=== PATIENT | male | born 1965 | race Caucasian/White ===

== ENCOUNTER 2022-09-04 08:11 | Observation (INO) ==
--- NOTE | 2022-08-28 10:55 | Anesthesiology Consultation ---
Date of Service August 28, 2022 Assessment & Plan (1) Encounter for pre-operative examination: Chart Review Chart Review: Acceptable Risk for Surgery and Patient NOT seen in Pre Admission Testing -COVID screening: Per PAT nursing assessment on 08/28/22. No known COVID-19 positive contacts or current COVID-19 related symptoms. Travel screen negative. Patient is NOT vaccinated for Covid. At surgeon discretion if preop Covid testing being done. Pt seen by PCP 08/24/22= seen for preop clearance for low back surgery. Lab results are normal, CXR normal, EKG shows NSR, no ST-T or any other acute ch anges. "Pt cleared for surgery." History Surgery Operation Date: 09/04/22 10:05 Proposed Procedures p L2-L3 Decompression with Possible Coflex - Luis Manuel Mijares DO Height/Weight Height: 5 ft 11 in Weight: 97.522 kg Allergies Allergy/AdvReac Type Severity Reaction Status Date / Time No Known Allergies Allergy Verified 08/28/22 10:21 Medications Home Medications Medication Instructions Recorded Confirmed Last Taken lidocaine 5 % topical patch 1 patch topical DAILY PRN pain #15 08/03/22 08/28/22 Unknown ea methylprednisolone 4 mg tablets in See Rx Instructions .Route 08/03/22 08/28/22 Unknown a dose pack .COMPLEX #21 ea acetaminophen 500 mg tablet 500 mg PO Q6H PRN Pain 08/28/22 08/28/22 Unknown naproxen sodium 220 mg tablet 440 mg PO BID PRN Pain 08/28/22 08/28/22 Unknown (Aleve) Past Medical History Medical History (Updated 08/29/22 @ 09:05 by Abbi Payne PA-C) Chronic back pain Degenerative disc disease Hyperlipidemia Per PCP records Osteoarthritis Past Family History Family History Father Colon cancer Past Surgical History Surgical History History of appendectomy History of herniorrhaphy x2 [place] teeth extracted Social History Smoking Status: Never smoker Do You Dip or Chew Tobacco: No (quit in 1991) Hx Alcohol Use: No Hx Substance Use: No substance use type: does not use Lab Results Anesthesia Preop Results Results Anesthesia Widget: WBC 5.04 K/ul (4.8-10.8) 08/23/22 Hgb 15.7 g/dl (14.0-18.0) 08/23/22 Hct 44.7 % (42.0-52.0) 08/23/22 Plt 150 K/uL (130-400) 08/23/22 Na 138 mmol/L (136-145) 08/23/22 K 3.8 mmol/L (3.5-5.1) 08/23/22 Cl 104 mmol/L (98-107) 08/23/22 CO2 28 mmol/L (21-32) 08/23/22 BUN 29 mg/dl (6-23) H 08/23/22 Creat 0.89 mg/dl (0.6-1.4) 08/23/22 Glucose Level 90 mg/dl (70-99(Fasting)) 08/23/22 PT 11.3 Seconds (9.0-12.0) 08/23/22 PTT 27.8 Seconds (21.0-31.0) 08/23/22 INR 1.1 (0.9-1.1) 08/23/22 Urine Color Dark Yellow 08/23/22 Urine Appearance Clear (Clear) 08/23/22 Urine pH 5.5 (4.5-7.5) 08/23/22 Urine Specific [place] 1.039 (1.000-1.030) H 08/23/22 Urine Protein 1+ (Negative) H 08/23/22 Urine Glucose (UA) Negative (Negative) 08/23/22 Urine Ketones Trace (Negative) H 08/23/22 Urine Blood Negative (Negative) 08/23/22 Urine Nitrite Positive (Negative) A 08/23/22 Urine Bilirubin 1+ (Negative) H 08/23/22 Urine Urobilinogen Negative (Negative) 08/23/22 Urine Leukocyte Esterase Trace (Negative) H 08/23/22 Urine WBC (Auto) 1-5 /hpf (0-5) 08/23/22 Urine RBC (Auto) 0-4 /hpf (0-4) 08/23/22 Urine Hyaline Casts (Auto) 5-10 /lpf (0-5) H 08/23/22 Urine Epithelial Cells (Auto) 10-20 /lpf (0-5) H 08/23/22 Urine Bacteria (Auto) Negative (Negative) 08/23/22 Blood Type O Positive 08/23/22 Antibody Screen NEGATIVE 08/23/22 Testing Laboratory Results 08/23/22= URINE CULTURE: Three types of organisms present, all low counts probable skin cassy Electrocardiogram Date: 08/23/22 Findings: + NSR @ (62bpm ) RBBB. LAFB Bifascicular block Minimal voltage criteria for LVH, may be normal variant (Previous EKG from PCP office 01/28/21 showed RBBB/LAFB- Bifascicular block- pt's states patient has had no recent chest pain/SOB/cardiac symptoms- discussed with Dr. Diaz- patient can proceed as scheduled) Chest X-Ray Date: 08/23/22 Findings: + NAD
[~2022-09-04 08:11] MED LIST: ACETAMINOPHEN 500 MG TAB PO SCH; CeleBREX 200 MG CAP PO SCH; GABAPENTIN 600 MG DOSE PO SCH; LR 15ML/HR IV SCH; ceFAZolin 2000MG 2,000 MG/15 ML SYR IV SCH
[2022-09-04] MEDS ORDERED: HYDROmorphone INJ 1 MG/ML SYRINGE IV PRN ×2 (09:25→12:15)
[2022-09-04] MEDS ORDERED: ONDANSETRON INJ 2 MG/ML 2 ML VIAL IV PRN ×2 (09:25→12:15)
[2022-09-04] MEDS ORDERED: ePHEDrine sulfate 50 MG/ML AMP IV PRN (09:25)
[2022-09-04] MEDS ORDERED: ATROPINE SULFATE 0.1 MG/ML 10ML SYR IV PRN (09:25)
[2022-09-04] MEDS ORDERED: fentaNYL citrate PF 100 MCG/2 ML VIAL IV PRN (09:25)
--- NOTE | 2022-09-04 09:43 | History & Physical Bridge Note ---
Date of Service September 04, 2022 History & Physical Bridge Note I have examined the patient, reviewed the History & Physical and in the interval since the performance of the History & Physical I have noted the following changes of clinical significance: no changes noted
--- NOTE | 2022-09-04 09:44 | History & Physical Report ---
Date of Service September 04, 2022 Assessment & Plan (1) Lumbar disc herniation with radiculopathy: Plan: L2-L3 decompression with possible Coflex History of Present Illness Chief Complaint: Back and leg pain Primary Care Provider: Dilia Landry This is a 57-year-old male presents with chronic persistent back and leg pain after failing course of nonoperative care is here for surgical invention. Allergies Allergy/AdvReac Type Severity Reaction Status Date / Time No Known Allergies Allergy Verified 09/04/22 09:06 Home Medications Medication Instructions Recorded Confirmed Type lidocaine 5 % topical patch 1 patch topical DAILY PRN pain #15 08/03/22 09/04/22 Rx ea acetaminophen 500 mg tablet 500 mg PO Q6H PRN Pain 08/28/22 09/04/22 History naproxen sodium 220 mg tablet 440 mg PO BID PRN Pain 08/28/22 09/04/22 History (Aleve) Past Med/Surg History Medical History (Updated 09/04/22 @ 09:44 by Luis Manuel Mijares DO) Chronic back pain Degenerative disc disease Hyperlipidemia Per PCP records Osteoarthritis Surgical History History of appendectomy History of herniorrhaphy x2 [place] teeth extracted Family History Father Colon cancer Social History Smoking Status: Never smoker Second Hand Exposure: No; Do You Dip or Chew Tobacco: No (quit in 1991); Tobacco Cessation Education Requested by Patient: No Hx Alcohol Use: No Hx Substance Use: No Preferred Language: Telugu Communication Ability: Effective Higher Level Teaching Assistant Required: No Beliefs That Will Affect Care: None Current Living Situation: Spouse Other Information That Helps Us Care for You: No Feels Safe at Home: Yes Safety Concerns: Feels Safe At This Time Assistive Devices: Glasses Physical Exam Physical Exam: Patient is alert and oriented Heart regular rhythm Lungs clear Results & Data Results & Data Vital Signs (Past 12 Hours) Vital Signs Temp Pulse Resp BP Pulse Ox O2 Del Method 09/04/22 09:09 36.4 C L 63 20 132/89 99 Room Air
[2022-09-04] MEDS ORDERED: BUPIVACAINE/EPINEPHRINE 0.25% 1:200,000 30 ML VIAL ONE (09:46)
[2022-09-04] MEDS ORDERED: ceFAZolin 330 MG/ML 1 GM VIAL ONE (09:46)
[2022-09-04] MEDS ORDERED: ONDANSETRON INJ 2 MG/ML 2 ML VIAL ONE (09:51)
[2022-09-04] MEDS ORDERED: GLYCOPYRROLATE 0.2 MG/ML VIAL ONE (09:51)
[2022-09-04] MEDS ORDERED: LIDOCAINE 2% MPF LOCAL 5 ML VIAL ONE (09:51)
[2022-09-04] MEDS ORDERED: NEOSTIGMINE METHYLSULFATE 1 MG/ML 10ML VIAL ONE (09:51)
[2022-09-04] MEDS ORDERED: ROCURONIUM BROMIDE 10 MG/ML 5 ML VIAL IV ONE (09:51)
[2022-09-04] MEDS ORDERED: PROPOFOL IV EMULSION 10 MG/ML 20 ML VIAL IV ONE (09:51)
[2022-09-04] MEDS ORDERED: DEXAMETHASONE SOD INJ 4 MG/ML VIAL ONE (09:51)
[2022-09-04] MEDS ORDERED: HYDROmorphone INJ 2 MG/ML SYR/VIAL ONE (09:52)
[2022-09-04] MEDS ORDERED: MIDAZOLAM HCL 1 MG/ML 2ML VIAL ONE (09:52)
[2022-09-04] MEDS ORDERED: ePHEDrine sulfate 50 MG/ML AMP ONE (10:46)
[2022-09-04] MEDS ORDERED: FLOSEAL HEMOSTATIC MATRIX 10ML TOP ONE (11:10)
--- NOTE | 2022-09-04 11:14 | Operative Report ---
Post Operative Report Pre & Post Diagnosis Operation Date: 09/04/22 10:05 Pre-Op Diagnosis: Lumbar Disc Herniation with Radiculopathy Post-Op Diagnosis: Lumbar Disc Herniation with Radiculopathy I identified the patient and participated in the time-out.: Yes Procedure Operation Date: 09/04/22 10:05 Actual Procedures #1 lumbar decompression with medial facetectomies foraminotomies and excision of herniated free fragment L2-L3. #2 placement of 16 mm Coflex interlaminar fixation. Surgeon Luis Manuel Mijares DO Vibration Analyst Archana Delatorre Estimated Blood Loss 30 Findings Consistent with Post-Op Diagnosis Specimens None Indications This is a 57-year-old male presents with severe radiculopathy and herniated disc. After failed course of nonoperative care is here for surgical invention. Description of Procedure Patient was met with identified informed consent obtained. Patient was then taken to the operative suite underwent patient placed in a prone position on the [place] table top Ton frame. All bony prominences well-padded eyes inspected to ensure no external pressure placed upon them. This point the lumbar spine was prepped and draped in a sterile fashion. The assistance of fluoroscopy defy the L2-L3 disc base and a midline incision was created overlying this region. Sharp dissection with assistance of Bovie cautery form down to and exposing the interlaminar space at L2-L3. Midline decompression including medial facetectomies and foraminotomies performed. I also identified neck removed massive free fragment disc herniation on the right. After complete decompression I explored the area several times to ensure all these fragments addressed. Then placed a 16 mm Coflex into the interlaminar space. A prescription into position. The incision was then copiously irrigated 10 round JASON drain inserted. Then closed with subcutaneous Vicryl and 4 Monocryl for f inal skin closure. Steri-Strips sterile dressing placed. Patient waken and taken to PACU in stable condition. Please note Archana Delatorre was present at the entire surgery involved the patient positioning complex portion of the surgery and final skin closure. I attest to the content of the Intraoperative Record and any orders documented therein. Any exceptions are noted below.
--- NOTE | 2022-09-04 11:58 | Fluoroscopy Report ---
FL spine 1V any level CLINICAL HISTORY: L2-3 DECOM W/COFLEX COMPARISON STUDY: Lumbar spine MRI August 01, 2022. FLUOROSCOPY TIME: 8 seconds. FLUOROSCOPIC IMAGES: 2 FINDINGS: Fluoroscopy was provided during L2-L3 posterior decompression with placement of a Coflex de vice. IMPRESSION: Fluoroscopy provided during L2-L3 decompression with placement of a Coflex device. ACT 112: Negative or not required by law. Electronically signed by: Paxton Bui M.D. 09/04/2022 11:56 AM
[2022-09-04] MEDS ORDERED: HYDROmorphone INJ 0.5 MG/0.5 ML SYR IV PRN (12:15)
[2022-09-04] MEDS ORDERED: LORazepam 2 MG/1 ML VIAL IV PRN (12:15)
[2022-09-04] MEDS ORDERED: DO NOT ADMINISTER FLU VACCINE PRN (12:15)
[2022-09-04] MEDS ORDERED: ACETAMINOPHEN 1,000 MG/100 ML VIAL IV PRN (12:15)
[2022-09-04] MEDS ORDERED: METOCLOPRAMIDE HCL INJ 5 MG/ML 2 ML VIAL IV PRN (12:15)
[2022-09-04] MEDS ORDERED: diphenhydrAMINE Capsule 25 MG CAP PO PRN (12:15)
[2022-09-04] MEDS ORDERED: bisacodyL 10 MG SUPP PR PRN (12:15)
[2022-09-04] MEDS ORDERED: NALOXONE HCL 0.4 MG/1 ML VIAL/CARP IV PRN (12:15)
[2022-09-04] MEDS ORDERED: FAMOTIDINE 20 MG TAB PO PRN (12:15)
[2022-09-04] MEDS ORDERED: SOD PHOSPHATE/SOD BIPHOSPHATE ENEMA 132 ML BTL PR PRN (12:15)
[2022-09-04] MEDS ORDERED: ALUMINUM/MAGNESIUM SUSP 30 ML UDC PO PRN (12:15)
[2022-09-04] MEDS ORDERED: DO NOT ADMINISTER PNEUMOCOCCAL VACCINE PRN (12:15)
[2022-09-04] MEDS ORDERED: hydrOXYzine HCl 25 MG TAB PO PRN (12:15)
[2022-09-04] MEDS ORDERED: ONDANSETRON 4 MG OD TAB PO PRN (12:15)
[2022-09-04] MEDS ORDERED: ACETAMINOPHEN 500 MG TAB PO PRN (12:15)
[2022-09-04] MEDS ORDERED: traMADol HCL 50 MG TABLET PO PRN (12:15)
[2022-09-04] MEDS ORDERED: MAGNESIUM HYDROXIDE SUSP 30 ML UDC PO PRN (12:15)
[2022-09-04] MEDS ORDERED: LORazepam 0.5 MG TAB PO PRN (12:15)
[2022-09-04] MEDS ORDERED: PROMETHAZINE HCL 12.5 MG in SODIUM CHLORIDE 0.9% 50 ML IV PRN (12:15)
--- NOTE | 2022-09-04 13:12 | Anesthesiology Progress Note ---
Date of Service September 04, 2022 Anesthesia Post Procedure Vital Signs Vital Signs: Temp Pulse Pulse Resp BP Pulse Ox O2 Del Method 09/04/22 13:07 Nasal Cannula 09/04/22 12:47 97.5 F L 67 16 109/71 95 Nasal Cannula 09/04/22 12:12 97.5 F L 56 L 16 123/80 95 Nasal Cannula 09/04/22 11:55 64 13 117/82 97 Nasal Cannula 09/04/22 11:45 69 14 119/75 96 Nasal Cannula 09/04/22 11:35 86 15 123/74 97 Nasal Cannula 09/04/22 11:27 97.3 F L 77 13 117/68 96 Nasal Cannula 09/04/22 09:09 97.5 F L 63 20 132/89 99 Room Air O2 Flow Rate 09/04/22 13:07 1 09/04/22 12:47 1 09/04/22 12:12 1 09/04/22 11:55 3 09/04/22 11:45 3 09/04/22 11:35 3 09/04/22 11:27 3 09/04/22 09:09 Pain Intensity Lower Back: Pain Intensity: 5 Transfer of Care Handoff Completed per policy Notes Mental Status: alert / awake / arousable and participated in evaluation Patient Amnestic to Procedure: Yes Nausea / Vomiting: adequately controlled Pain: adequately controlled Airway Patency, RR, SpO2: stable & adequate BP & HR: stable & adequate Hydration State: stable & adequate Anesthetic Complications: no major complications apparent and Pt Satisfied with anesthetic care
[2022-09-04] MEDS: LACTATED RINGER'S 1,000 ML IV SCH ×2 (13:47→20:45)
[2022-09-04] MEDS: ceFAZolin 2000MG 2,000 MG/15 ML SYR IV SCH (17:52)
[2022-09-04] MEDS: oxyCODONE HCL IR 5 MG TAB (IMMEDIATE RELEASE) PO PRN (17:52)
[2022-09-04] MEDS ORDERED: DOCUSATE SODIUM/SENNA 50/8.6MG TAB PO SCH (21:00)
[2022-09-05] MEDS: ceFAZolin 2000MG 2,000 MG/15 ML SYR IV SCH (02:42)
[2022-09-05] MEDS: LACTATED RINGER'S 1,000 ML IV SCH (02:42)
[2022-09-05] MEDS ORDERED: POLYETHYLENE (MIRALAX) 17 GM PACK PO SCH (06:00)
[2022-09-05] MEDS: oxyCODONE HCL IR 5 MG TAB (IMMEDIATE RELEASE) PO PRN (06:16)
[2022-09-05] MEDS ORDERED: dexAMETHasone 6 MG in SYRINGE 0 ML IV SCH (09:00)
--- NOTE | 2022-09-05 10:44 | Discharge Summary ---
Date of Service September 05, 2022 Admission HPI Per Admitting Provider This is a 57-year-old male presents with chronic persistent back and leg pain after failing course of nonoperative care is here for surgical invention. Principal Diagnosis Lumbar disc herniation with radiculopathy Discharge Data Allergies Allergy/AdvReac Type Severity Reaction Status Date / Time No Known Allergies Allergy Verified 09/04/22 09:06 Procedures Performed Operation Date: 09/04/22 10:05 Actual Procedures p L2-L3 Decompression with Coflex(Not Applicable) - Luis Manuel Mijares DO Ordered Studies 09/04/22 10:05 [place] spine 1V any level Routine Hospital Course (1) Lumbar disc herniation with radiculopathy: Patient underwent lumbar decompression discectomy tolerated as well as taken to the orthopedic for postop lipid postop and when he was up and ambulating leg pain markedly improved. Excellent strength testing. JASON drain decreasing appropriately. Separately discharged home. Discharge orders and instructions found in the chart for further review. Total Time Total Time Spent Total Time Spent (In Minutes): 20 minutes Discharge Plan Discharge Items Patient Disposition: Home - Self-Care Reason For Visit: Other Interverterbral Disc Degneration, Lumbar Reg Discharge Diagnosis: Lumbar spinal stenosis with neurogenic claudication Activity: As commented below Non-emergency contact: Primary Care Provider Call non-emergency contact if: you have any medication questions Follow-up/Referrals: Dilia Landry [Primary Care Provider] - Diet: Regular Addtl Attending Provider Instructions: ACTIVITY RECOMMENDATIONS: SELF CARE INSTRUCTIONS AFTER THORACIC/LUMBAR FUSIONS 1. You may walk to your tolerance. It is good exercise for your legs and back. Expect some back and intermittent leg aches and pains. 2. You may perform "counter-top" level activities (make a sandwich, yolanda with a project, etc.). 3. No bending or lifting of more than 10 pounds or back twisting of any nature (roll like a log when turning in bed). 4. You may ride in a car for 20-30 minutes at a time. No driving until after your first visit with your doctor. 5. Frequent changes of position and restricting sitting to 30 minutes at a time will help limit the amount of back spasms and stiffness you may experience. 6. You may discontinue the use of ambulatory aids (cane, crutches, etc.) once your strength and confidence allow. 7. You may international first officer the shower and let water strike your incision when you arrive home at least once daily. Do not take a tub bath, sit in a hot tub or go into a swimming pool until after your first recheck in the office. SPECIAL CARE INSTRUCTIONS: VERY IMPORTANT TO READ AND REVIEW A. Your surgical incision has been closed with a cosmetic suture under the skin that will dissolve in about 6 weeks. In 14 days, you can use a pair of clean scissors and cut the suture that is left outside of the skin at the ends of your incision. 1. The small skin tapes can be removed 7 days after surgery if they have not fallen off by that point. 2. You may keep the wound open to air as much as possible to promote healing after post-op day number 5 unless told otherwise by your doctor. 3. If you think the wound looks like it is becoming infected (redness or worsening drainage) and/or you are experiencing fever, chill or worsening back pain and muscle spasms, contact the office so that we may evaluate you as soon as possible. B. Complications are uncommon, but please contact us if you have any signs or symptoms of: 1. wound infection (fever higher than 102.5 degrees F, redness, separation of wound, drainage, or increasing pain from the incision) 2. blood clots in legs (pain, swelling, redness and warmth in legs) 3. urinary tract infection (fever higher than 102.5 degrees F, burning upon urination or increased frequency of urination) 4. nerve problems (inability to walk on your toes or heels, numbness, loss of bowel or bladder control) 5. any other symptoms that concern you C. Please call the office at if you have any concerns or questions about your operation or recovery. D. No smoking! Smoking drastically decreases the chance of a solid fusion. E. Do not take any anti-inflammatory medications (Indocin, Advil, Motrin, Aspirin, Naprosyn, etc.) as these may inhibit the chance of a solid fusion. Tylenol is okay to take for pain. MANAGING PAIN AFTER SPINAL SURGERY 1. Narcotic medication is intended for short-term use and will be provided for surgical pain. Surgical pain usually lasts for a period of 4-6 weeks. Narcotic medication includes Percocet, Vicodin, Darvocet, Tylenol #3 or Lortab. 2. Longer-term pain is more appropriately treated with non-narcotic medication such as Tylenol ES. 3. Muscle spasm is not appropriately treated with narcotics. Muscle relaxers such as Soma, Flexeril or Skelaxin can be used along with Tylenol ES. 4. Remember that we all live with some "aches and pains". This is not unusual or uncommon after an injury or as we get older. a. Back pain is expected and may include muscle spasms for 4 to 6 weeks after surgery. The pain should gradually improve. If the pain worsens for no apparent reason, please contact the office. b. Intermittent leg pain may also be experienced and should not be concerned about unless it worsens for no apparent reason. If so, please contact the office. 5. We will provide appropriate medication within the normal guidelines of their prescribed use. We will also be very cautious and aware of potential abuse and extended duration of patients' medication needs. a. Pain medications are for your comfort and to assist with sleep and rest so that the tissue can heal. They are not provided in order to return to normal activity and should not be used through the day. To do so or worsening pain at night can result from ongoing tissue damage and development of tolerance to the prescribed medicine. 6. Please allow 2-3 days to process refills. Prescriptions will not be mailed but must be picked up at the office. FOLLOW UP VISIT: Keep your scheduled follow-up appointment. Any questions, please call the office at . Pending Studies at Discharge: No Stand-Alone Forms: [facility], Smoking Cessation Medications and DC Order Prescriptions: New tramadol 50 mg tablet 50 mg PO Q6H PRN (Reason: pain, moderate) Qty: 30 0RF oxycodone-acetaminophen [Percocet] 5-325 mg tablet 1 tab PO Q8H Qty: 30 0RF Continued lidocaine 5 % adhesive patch,medicated 1 patch TOP DAILY PRN (Reason: pain) Qty: 15 0RF Rx Instructions: leave on most painful area for 12 hrs acetaminophen 500 mg Tablet 500 mg PO Q6H PRN (Reason: Pain) naproxen sodium [Aleve] 220 mg Tablet 440 mg PO BID PRN (Reason: Pain) Discharge Orders: Discharge Order (Routine); Ordered 09/05/22 Ordered By: Luis Manuel Mijares Admission Data Admit Date/Time: 09/04/22 11:19 Attending Provider: Luis Manuel Mijares Admit Provider: Luis Manuel Mijares Primary Care Provider: Dilia Landry
== END 2022-09-05 11:37 | disposition home or self-care (01) ==
LOC: 3E 08:11 → ASU 08:11